=== PATIENT | female | born 1950 | race Caucasian/White ===

== ENCOUNTER → 2017-02-11 | Outpatient (CLI) | payer MEDICARE ==
[2016-06-26 13:35] VITALS: BP 120/59
[~2017-02-11] MED LIST: ACET325T9 PO; ATOR10TA60 PO; CHOL500015 PO; CITA20TA9 PO; DOCU-27 PO; FERR-26 PO; FEXO180T81 PO; IOHEXOL 180 MG/ML 10 ML VIAL. ONE; KRIL500C PO; LEVO50TA PO; LORA10TA3 PO; MAGN400C PO; METO25TA9 PO; OXYC-250 PO; PANT40TA5 PO; PROAIR HFA8.5 GM INH; SUMA5SPR NS; UBID50TA PO; WARF5TAB PO; methylPREDNISolone ACETATE 40 MG/ML VIAL. ONE; methylPREDNISolone ACETATE 80 MG/ML VIAL. ONE
--- NOTE | 2017-02-11 15:07 | PAIN ---
DATE OF SERVICE: 02/11/2017 INITIAL CONSULTATION FOR PAIN CLINIC CHIEF COMPLAINT: Neck and left upper extremity pain. HISTORY OF PRESENT ILLNESS: This is a 66-year-old female who presents with history of pain in the neck and left upper extremity for many years, the patient reports since 2009 at least. She had previous surgery in 2001 or so with anterior cervical fusion, multiple levels. The patient reports that since that time she did very well until about 2009, begin having pain in the base of the neck, shoulders, upper extremities, upper back, mid back with headaches and has been treated over the years, worse complaint now is neck and left shoulder, left upper extremity pain mostly in the biceps region and into the forearm, deltoid in the posterior aspect of the left arm as well with some tingling and numbness in the right arm also. The patient reports have been dropping items with the left hand, especially coffee cups or fine motor movement objects that she has been taking up. She has been dropping and then having some motor loss with the left arm and hand itself as well as paresthesias. The patient reports it is worse with abduction of the shoulder, worse with activities of daily living, getting dressed, using forehead and reaching forward as well as left hand. The patient reports it awakens her from sleep, but not every night, does not affect her bowel or bladder control or ability to walk. She has had some low back pain, which affects this as well. The patient has had physical therapy, chiropractic treatment exercises, epidural injections as well as shoulder biceps tendon injections on the left side. The patient has tried oral steroids, meloxicam, naproxen and Cymbalta, all of which helped to some extent, but has had some increase in blood pressure from the medications also, the other side effects. The patient did have an MRI scan of the cervical spine dated 11/05/2016 showing anterior cervical fusion, C3 through C6 of interbody grafts, no significant cervical spinal stenosis with mild to moderate left neural foraminal compromise, C4-C5 and C5-C6 due to facet degenerative change. The patient reports disability 0-10, 10 being the worst, is 6 with family and home responsibilities, 8 with recreation and sexual behavior, 1 with social activity, 4 with occupation, 3 with self care and 2 with life support activities. PAST MEDICAL HISTORY: Significant for borderline diabetes, hypothyroidism, hearing aids, blindness in the right eye, hypertension, arrhythmias, PVCs, gastroesophageal reflux, migraine headaches, arthritis, anxiety. PREVIOUS SURGERY: Include right total knee replacement 2015, lumbar laminectomy in 02/2007, cervical fusion 3 levels 08/2002, cholecystectomy in 1989, hysterectomy in 1985 and completed in 1990 and previous sinus surgery. CURRENT MEDICATIONS: Include omeprazole, loratadine, Colace, Restasis, Lasix, Imitrex, simvastatin, Lexapro, estradiol, levothyroxine, metoprolol. ALLERGIES: The patient is allergic to HYDROCODONE, OXYCODONE, , ULTRAM, STADOL, NUBAIN, FENTANYL, MORPHINE, NSAIDS, REGLAN, SULFA DRUGS, MACRODANTIN, TETRACYCLINES, CODEINE, PENICILLIN, CERTAIN METALS CELEBREX, TOPAMAX, WELLBUTRIN, EPINEPHRINE AND TORADOL. FAMILY HISTORY: Significant for osteoarthritis, hypertension, cancer of the pancreas, liver, lung and prostate. SOCIAL HISTORY: The patient is very rarely drinks a glass of wine maybe sometimes a year, does not smoke. She is , lives with her spouse, one child living at home and lives locally in [place], [place]. REVIEW OF SYSTEMS: The patient's review of systems is positive for those items mentioned in history of present illness. All systems reviewed and otherwise negative. It is complete, full and well documented on the patient's chart. PHYSICAL EXAMINATION: VITAL SIGNS: The patient's blood pressure is 146/78, pulse 71, respirations 18, temperature 98.2 degrees Fahrenheit, height is 5 feet 10 inches, weight is 201 pounds. GENERAL: The patient is awake, alert, oriented, appropriate, very pleasant demeanor. HEENT: Shows normocephalic, atraumatic. The patient wears eyeglasses. Extraocular movements are intact and symmetrical. Oral cavity, mucous membranes are moist and pink. Dentition is intact. NECK: Shows anterior throat supple without palpable lymphadenopathy noted. Swallow reflex is symmetrical. CHEST: Shows normal on inspection. Breath sounds are clear to auscultation bilaterally. HEART: Shows S1 and S2 clear. No murmurs are auscultated. ABDOMEN: Soft, nontender, nondistended, obese. No palpable organomegaly. No rebound or guarding demonstrated. BACK: Shows spine grossly midline. Well-healed surgical scarring noted in both feet are in the cervical distribution. Cervical paraspinous musculature is symmetrical on inspection, but very firm and tender with palpation throughout the upper, middle, lower distribution bilaterally diffusely without radiation, also in the superior medial and lateral trapezius, more on the left than the right, but very tender bilaterally without specific trigger points with very firm with increased muscle girth on the left compared to the right with firm palpation. The patient does show good rotational motion of the cervical spine; however, in the past 45 degrees right and left with some minor guarding also with extension with very minimal pain reported. Also, forward flexion with no pain reported and full forward flexion, chin to chest without difficulty. Upper extremities show deep tendon reflexes at 2+ in the biceps and triceps tendons. Motor exam is strong with approximately 4 on a scale of 5 with construction superintendent strength on the left and 5/5 on the right. Bicep and tricep flexion is 4/5 left, 5/5 on the right as well. Peripheral pulses are 2+ radial distribution. No peripheral edema is noted. No clubbing, no cyanosis. Upper extremities are warm and dry to touch, equal in color and appearance. The patient's shoulder shrug is strong and intact, but with pain reported in the base of the neck and shoulders bilaterally, worse on the left than the right with resistance, but no loss of strength. The patient shows abduction of shoulder. There is also significant tenderness on the left side with resistance and even some loss of strength on resistance with left side deltoid lateral movement and resistance, but not on the right. IMPRESSION: 1. This is a 66-year-old female with a long history of neck and left upper extremity pain in a radicular fashion. 2. MRI scan as noted. 3. Osteoarthritis. 4. Hypertension. PLAN: Options were discussed with the patient including conservative medical management, physical therapy, interventional techniques. She would like to pursue interventional techniques. We discussed the low cervical epidural steroid injection using description as well as anatomical models to describe the procedure. Risks were then discussed including, but not limited to bleeding, infection, possibility of epidural hematoma, subsequent neurologic compromise, dural puncture, headaches, spinal cord and/or nerve damage, side effects of steroid medication and poor results regarding pain control. The patient understands and wished to proceed. The patient will return to clinic in approximately 2 weeks for followup, was counseled on return appointment, activity level and side effects to be aware of. DIAGNOSES: Cervical radiculopathy with cervical degenerative disk disease and post-cervical laminectomy syndrome. PROCEDURE: Cervical epidural steroid injection in translaminar approach at the C6-C7 level with fluoroscopic guidance under sterile prep and drape using local anesthesia. Medication injected is 120 mg Depo-Medrol plus 5 mL preservative-free normal saline and 2 mL Isovue contrast. CONDITION AT DISCHARGE: Stable. The patient tolerated procedure well, had no complications. KAREN BARNETT MD DR: KRAIG/edyta JOB#: [id number] / [id number] VLADIMIR Galvan DO
== END | disposition home or self-care (01) ==
LOC: PNCL 10:03
PROVIDERS: ATTEND Anesthesiology
DX: M50.123 Cervical disc disorder at C6-C7 level with radiculopathy (principal); M96.1 Postlaminectomy syndrome, not elsewhere classified; M19.90 Unspecified osteoarthritis, unspecified site; I10 Essential (primary) hypertension; E11.9 Type 2 diabetes mellitus without complications; E03.9 Hypothyroidism, unspecified; K21.9 Gastro-esophageal reflux disease without esophagitis; F41.9 Anxiety disorder, unspecified; Z90.710 Acquired absence of both cervix and uterus; Z90.49 Acquired absence of other specified parts of digestive tract; Z96.651 Presence of right artificial knee joint; Z80.42 Family history of malignant neoplasm of prostate; Z80.1 Family history of malignant neoplasm of trachea, bronchus and lung
CPT/HCPCS: 62321; J1030; J1040

== ENCOUNTER → 2017-03-16 | Outpatient (CLI) | payer MEDICARE ==
[2016-06-26 13:35] VITALS: BP 120/59
--- NOTE | 2017-03-17 01:50 | PAIN ---
DATE OF SERVICE: 03/16/2017 DIAGNOSES: Cervical radiculopathy with cervical degenerative disk disease and post-cervical laminectomy syndrome. HISTORY OF PRESENT ILLNESS: The patient is a 66-year-old female who returns for followup status post cervical epidural steroid injection x 1 on 02/11/2017. The patient did very well, about 95% improvement, but she reports the pain is beginning to return now over the past few days, but still doing much better. Pain in the neck and upper extremities more worse on the left than then right, mostly in the posterior aspect of left arm and forearm, but some on the right side as well, but much more rarely. The patient reports it as a 6 on a scale of 10. She reports normally 3, which is what it is today. The patient describes it as aching, burning, cramping, some pain that ____ constant, but can be at times. The patient reports she is sleeping better at night and increased her activity with greater ease for upper extremities, with repetitive motions and doing some garden work at her house with much greater ease and comfort. She reports the pain is beginning to return now, becoming more noticeable again in the base of the neck, shoulder and into left upper extremity, but without motor loss. PHYSICAL EXAMINATION: VITAL SIGNS: Today, the patient's blood pressure is 120/55, pulse 69, respirations 18, and temperature 98.1 degrees Fahrenheit. Height is 5 feet 10 inches and weighs 209 pounds. GENERAL: The patient is awake, alert, oriented and appropriate, very pleasant demeanor. HEENT: Head shows normocephalic and atraumatic. Extraocular movements are intact and symmetrical. Oral cavity shows mucous membranes moist and pink. Dentition is intact. NECK: Shows anterior throat supple without palpable lymphadenopathy noted. Swallow reflex is symmetrical. CHEST: Normal on inspection. Breath sounds clear to auscultation bilaterally. HEART: Shows S1 and S2 clear. ABDOMEN: Soft, nontender, and nondistended. No palpable organomegaly. No rebound or guarding demonstrated. BACK: Shows spine grossly in the midline. Cervical paraspinous musculature shows some moderate tenderness with palpation, but is symmetrical only in the base of the neck in the superior medial aspect of the ____ trapezius. It is slightly more on the left than the right, but without asymmetry. The patient has good rotational motion of cervical spine, both laterally as well as extension and flexion without exacerbation of pain. EXTREMITIES: Upper extremities showed deep tendon reflexes 2+ in the biceps and triceps. Motor exam is approximately 4 on scale of 5, still with left biceps and triceps flexion and 5/5 on the right. Options were discussed with the patient and the patient's old chart was reviewed as her current medication regimen updated. Current review of systems updated today as well. We will proceed with a second cervical epidural steroid injection today with fluoroscopic guidance. Risks were again discussed including, but not limited to bleeding, infection, possibility of epidural hematoma and subsequent neurologic compromise, dural puncture, headaches, spinal cord and/or nerve damage, side effects of steroid medication and poor results regarding pain control. The patient understands and wished to proceed. The patient will return to clinic in approximately 2 weeks for followup. She was counseled on return appointment, activity level and side effects to be aware of. DIAGNOSES: Cervical radiculopathy with cervical degenerative disk disease and post-cervical laminectomy syndrome. PROCEDURE: Cervical epidural steroid injection in translaminar approach at C6-C7 level using C-arm fluoroscopic guidance under sterile prep and drape using local anesthetic. MEDICATIONS INJECTED: Depo-Medrol 120 mg plus 5 mL of preservative-free normal saline and 2 mL of Isovue for contrast. CONDITION AT DISCHARGE: Stable. The patient tolerated procedure well, had no complications. KAREN BARNETT MD DR: KRAIG/edyta JOB#: [id number] / [id number]
== END | disposition home or self-care (01) ==
LOC: PNCL 09:29
PROVIDERS: ATTEND Anesthesiology
DX: M50.123 Cervical disc disorder at C6-C7 level with radiculopathy (principal); M96.1 Postlaminectomy syndrome, not elsewhere classified; E78.00 Pure hypercholesterolemia, unspecified; I10 Essential (primary) hypertension; K21.9 Gastro-esophageal reflux disease without esophagitis; M19.90 Unspecified osteoarthritis, unspecified site; E03.9 Hypothyroidism, unspecified; F41.9 Anxiety disorder, unspecified; Z98.41 Cataract extraction status, right eye; Z98.42 Cataract extraction status, left eye; Z90.49 Acquired absence of other specified parts of digestive tract
CPT/HCPCS: 62321; J1030; J1040

== ENCOUNTER → 2017-05-06 | Outpatient (CLI) | payer MEDICARE ==
[2016-06-26 13:35] VITALS: BP 120/59
[~2017-05-06] MED LIST changes: -CHOL500015 PO; +CHOL500045 PO; +DOCU-109 PO; -DOCU-27 PO; +FURO-68 PO; -OXYC-250 PO; +OXYC-328 PO; +WARF-78 PO; -WARF5TAB PO
--- NOTE | 2017-05-06 16:42 | PAIN ---
DATE OF SERVICE: 05/06/2017 PROGRESS NOTE FOR PAIN CLINIC DIAGNOSES: Cervical radiculopathy with cervical degenerative disk disease and post-cervical laminectomy syndrome. HISTORY OF PRESENT ILLNESS: The patient is a 66-year-old female who returns for followup status post cervical epidural steroid injections x 2. The patient reports she has done very well with these, about 90% improvement for the first month and the pain returns in the base of the neck and shoulders, worse on the left than the right, radiating to the upper extremities up to the mid arm, ____ forearm on the left side. The patient reports it is an 8 on a scale of 10 at its worst and is a 3 on a scale of 10 at its least, currently 3 on a scale 10 today. The patient reports worse with activity, increasing raising her arms overhead, any repetitive motion with upper extremity. She reports that she feels better with lying down or sleeping. She is sleeping about 7 hours a night without any disturbance from the pain awakening her. The patient reports no new motor or sensory deficits or other complaints. PHYSICAL EXAMINATION: VITAL SIGNS: The patient's blood pressure 116/58, pulse 73, respirations 20, temperature 98.2 degrees Fahrenheit, height is 5 feet 10 inches, weight is 216 pounds. GENERAL: The patient is awake, alert, oriented, appropriate, very pleasant demeanor. HEENT: Head shows normocephalic, atraumatic. Extraocular movements are intact and symmetrical. Oral cavity, mucous membranes are moist and pink. Dentition is intact. NECK: Shows anterior throat supple without palpable lymphadenopathy noted. Swallow reflex is symmetrical. CHEST: Shows normal on inspection. Breath sounds are clear to auscultation bilaterally. HEART: Shows S1 and S2 clear. ABDOMEN: Soft, nontender, nondistended. No palpable organomegaly is noted. No rebound or guarding demonstrated. BACK: Shows spine grossly in the midline. The patient's cervical paraspinous musculature shows normal cervical lordotic curvature and symmetrical paraspinous musculature with palpation shows some moderate tenderness only diffusely in the inferior aspect of the cervical paraspinous muscles as well as superior medial and lateral trapezius, slightly more tender on the left than the right, but appears symmetrical without evidence of atrophy, hypertrophy or radiation. The patient shows good rotational motion of cervical spine both laterally as well as extension and flexion with some minor pain reported with extension in the base of the neck on the left, but not with forward flexion. EXTREMITIES: Upper extremity showed deep tendon reflexes 2+ in the biceps and triceps tendons. Motor exam is approximately 4 on a scale of 5 with left inner tube cutter and 5/5 on the right. PLAN: Options were discussed with the patient at this time. The patient's old chart was reviewed as her current medication regimen updated. Current review of systems updated today as well. We will proceed with the cervical epidural steroid injection today as the third in the series. Risks were again discussed including, but not limited to, bleeding, infection, possibility of epidural hematoma, subsequent neurologic compromise, dural puncture, headaches, spinal cord and/or nerve damage, side effects of steroid medication and poor results regarding pain control. The patient understands and wishes to proceed. The patient will return to the clinic in approximately 2 weeks for followup. She was counseled as to return appointment, activity level and side effects to be aware of. DIAGNOSES: Cervical radiculopathy with cervical degenerative disk disease and post-cervical laminectomy syndrome. PROCEDURE: Cervical epidural steroid injection, translaminar approach at the C6-C7 level using C-arm fluoroscopic guidance under sterile prep and drape using local anesthetic. MEDICATION INJECTED: 120 mg Depo-Medrol plus 5 mL of preservative-free normal saline and 2 mL of Isovue for contrast. CONDITION AT DISCHARGE: Stable. The patient tolerated procedure well, had no complications. KAREN BARNETT MD DR: KRAIG/edyta JOB#: [id number] / [id number]
== END | disposition home or self-care (01) ==
LOC: PNCL 09:32
PROVIDERS: ATTEND Anesthesiology
DX: M50.123 Cervical disc disorder at C6-C7 level with radiculopathy (principal); M96.1 Postlaminectomy syndrome, not elsewhere classified; E78.00 Pure hypercholesterolemia, unspecified; I10 Essential (primary) hypertension; J45.909 Unspecified asthma, uncomplicated; M19.90 Unspecified osteoarthritis, unspecified site; E03.9 Hypothyroidism, unspecified; F41.9 Anxiety disorder, unspecified; K21.9 Gastro-esophageal reflux disease without esophagitis; Z98.41 Cataract extraction status, right eye; Z98.42 Cataract extraction status, left eye; Z86.69 Personal history of other diseases of the nervous system and sense organs; Z90.49 Acquired absence of other specified parts of digestive tract; Z87.39 Personal history of other diseases of the musculoskeletal system and connective tissue; Z88.6 Allergy status to analgesic agent; Z88.1 Allergy status to other antibiotic agents; Z88.2 Allergy status to sulfonamides; Z88.8 Allergy status to other drugs, medicaments and biological substances
CPT/HCPCS: 62321; J1030; J1040

== ENCOUNTER → 2017-09-20 | Outpatient (CLI) | payer MEDICARE ==
[2016-06-26 13:35] VITALS: BP 120/59
[~2017-09-20] MED LIST changes: -IOHEXOL 180 MG/ML 10 ML VIAL. ONE; +METO-239 PO; -METO25TA9 PO; -methylPREDNISolone ACETATE 40 MG/ML VIAL. ONE; -methylPREDNISolone ACETATE 80 MG/ML VIAL. ONE
--- NOTE | 2017-09-20 17:03 | KCIC ---
MR of the right shoulder Indication: Right shoulder pain for at least 2 years. Decreased range of motion. Technique: Standard multiplanar sequences are obtained. Findings: Moderate motion degradation on some of the sequences. Acromioclavicular joint: Mild degenerative changes. Rotator cuff: Full-thickness tear of the anterior supraspinatus tendon, measures 1 cm AP diameter with 1 cm retraction. Mild fluid in the subdeltoid bursa. Mild rotator cuff muscle atrophy. Partial subscapularis tendon tear. Tendinosis of the remaining rotator cuff. Glenohumeral cartilage: No advanced primary osteoarthritis. Fluid: Trace joint fluid. Labrum: Limited evaluation due to the motion. No apparent tear. Biceps tendon: Proximal tendinosis and partial tear. Bones: No lesion or acute fracture. Soft tissue: Fluid within the subcoracoid bursa. Impression: 1. Rotator cuff tendinosis. Small full-thickness tear of the anterior supraspinatus tendon. Partial subscapularis tendon tear. 2. Subcoracoid bursal fluid or bursitis. 3. Proximal biceps tendinosis with partial tear. Electronically signed by: Edgar Prado MD (09/20/2017 5:00 PM) [id number]
== END | disposition home or self-care (01) ==
LOC: KCIC MRI 15:44
PROVIDERS: ATTEND Orthopaedic Surgery
DX: M25.511 Pain in right shoulder (principal)
CPT/HCPCS: 73221

== ENCOUNTER → 2019-02-09 | Outpatient (CLI) | payer MEDICARE ==
[2016-06-26 13:35] VITALS: BP 120/59
[~2019-02-09] MED LIST changes: +ALBU2.5V8 INH; -FERR-26 PO; +FERR325T14 PO; -OXYC-328 PO; +OXYC1TAB22 PO; -PROAIR HFA8.5 GM INH
--- NOTE | 2019-02-10 08:15 | KCIC ---
CT scan of the temporal bones without contrast 02/09/2019 CLINICAL HISTORY: Chronic left mastoiditis. Left ear pain. History of surgery in the 1970s. A drainage. TECHNIQUE: Unenhanced, contiguous, 0.6 mm axial sections were obtained through the petrous portions of the temporal bones. 1 mm reconstructed sagittal, axial and coronal images were obtained. FINDINGS: The patient is post right mastoidectomy. A small effusion is seen involving the remaining right mastoid air cells. A small to moderate left mastoid effusion is seen. 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 The middle ear ossicles are otherwise intact. No bony destruction is seen. No abnormal soft tissue mass is noted. Cochlea and semicircular canals are within normal limits bilaterally. Mild to moderate degenerative changes are seen involving both TMJs. The patient is post resection of a portion of the medial arteaga of both maxillary sinuses. Mild mucosal thickening is seen scattered throughout the sphenoid sinus and visualized portions of the ethmoid air cells. IMPRESSION: 1. Post right mastoidectomy. The patient appears to have a prosthetic right stapes. 2. Small to moderate-sized mastoid effusions, left greater than right. Electronically signed by: Lorenzo Olivia MD (02/10/2019 8:12 AM) [id number]
== END | disposition home or self-care (01) ==
LOC: KCIC CT 12:45
PROVIDERS: ATTEND Specialist
DX: H74.8X3 Other specified disorders of middle ear and mastoid, bilateral (principal); H70.12 Chronic mastoiditis, left ear
CPT/HCPCS: 70480

== ENCOUNTER → 2021-02-20 | Outpatient (CLI) | payer MEDICARE ==
[2016-06-26 13:35] VITALS: BP 120/59
[~2021-02-20] MED LIST changes: +FAMO20TA5 PO; +MULT-496 PO; -PANT40TA5 PO; +PANT40TA77 PO; +TIOT4MIS3 IH; +VENTOLIN HFA18 GM INH; +VITA1TAB19 PO; -WARF-78 PO; +WARF5TAB2 PO; +cognium
--- NOTE | 2021-02-20 11:20 | PDOC1 ---
INITIAL PAIN CONSULT DATE OF SERVICE: DOS: DATE: 02/20/21 TIME: 11:13 CHIEF COMPLAINT: Chief Complaint: Mid upper back and right side pain HISTORY OF PRESENT ILLNESS: 70-year-old female presents with history of pain in the mid upper back with radiation into the right thoracic cage to near midline on the right side. Patient reports it started about a year ago and is not result of any specific injury or accident she is aware of get increasing gradually getting worse over time patient reports is worse with walking standing changing positions generally better with sitting or laying down but much more noticeable with walking standing patient reports it begins in the mid part of the back radiates around the right side of the inferior rib cage and ends not quite to the midline but in the anterior lower thoracic distribution on the right side only. Patient reports is becoming more constant is aching with sore muscles sensation on the right side worse with walking and standing once again better with sitting or laying down generally does not awaken her from sleep at night does not affect her bowel bladder control or ability to walk patient reports some days it is fairly well controlled and other days is very severe with the pain. Patient reports she is taking Tylenol as well as other [id number] remedies without significant decrease in pain but the Tylenol does help by about 40% or so patient rates her disability rating 0-10 10 being the worst is a 2 of family home was hospitalized and recreation is 0 and social activity occupation sexual behavior support activities and self-care activities. Patient does not had any studies of the thoracic spine at this time but has had previous cervical laminectomy and lumbar laminectomy in the past. Patient has had CT scans of the chest which was essentially normal except for some groundglass appearance of the lungs and also CT of the chest abdomen and pelvis however the thoracic spine was not evaluated in the studies otherwise they were negative. PAST MEDICAL HISTORY: PMH: Hearing loss, COPD, gastroesophageal reflux, PVCs, arthritis PREVIOUS SURGERIES: Past Surgical Hx: Right trigger finger release, cataract extractions bilaterally, hysterectomy, bunionectomy, total knee replacement on the right, tympanoplasty, lumbar laminectomy, cervical laminectomy and fusion, toe surgeries multiple, carpal tunnel repair bilaterally CURRENT MEDICATIONS: Current Meds: Active Scripts Medications Dose Route/Sig Max Daily Dose Days Date Category Dose Instructions Daily Value (Multivitamin) 1 Each Tablet 1 Tab PO DAILY 30 02/20/21 Reported Famotidine 20 Mg Tablet 20 Mg PO HS 02/20/21 Reported [cognium] 1 Tab DAILY 02/20/21 Reported B Complex (Vitamin B Complex) 1 Each Tablet 1 Tab PO DAILY 30 02/20/21 Reported Ventolin Hfa Inhaler (Albuterol Sulfate) 18 Gm Hfa.aer.ad 2 Puff INH QID PRN 02/20/21 Reported Stiolto Respimat Inhal [place] (Tiotropium Br/Olodaterol HCl) 4 Gm Mist.inhal 4 Gm IH DAILY 02/20/21 Reported Lasix (Furosemide) 40 Mg Tablet 1 Tab PO DAILY 05/06/17 Reported Magnesium (Magnesium Oxide) 400 Mg Capsule 250 Mg PO BID 02/11/17 Reported Atorvastatin Calcium 10 Mg Tablet 10 Mg PO HS 02/11/17 Reported Vitamin D (Cholecalciferol (Vitamin D3)) 5,000 Unit Tablet 5,000 Unit PO HS 05/31/16 Reported LAST DOSE GIVEN: DATE:06-25-16 TIME:9:00 p.m. NEXT DOSE DUE: DATE:06-26-16 TIME:9:00 p.m. Pantoprazole Sodium (Pantoprazole Sodium) 40 Mg Tablet.dr 40 Mg PO HS 05/31/16 Reported LAST DOSE GIVEN: DATE:06-25-16 TIME:9:00 p.m. NEXT DOSE DUE: DATE:06-26-16 TIME:9:00 p.m. Loratadine 10 Mg Tablet 10 Mg PO HS 05/31/16 Reported Take at home as needed as directed Colace (Docusate Sodium) 100 Mg Capsule 100 Mg PO HS 05/31/16 Reported LAST DOSE GIVEN: DATE:06-25-16 TIME:9:00 p.m. NEXT DOSE DUE: DATE:06-26-16 TIME:9:00 p.m. Synthroid (Levothyroxine Sodium) 50 Mcg Tablet 1 Tab PO HS 05/31/16 Reported LAST DOSE GIVEN: DATE:06-26-16 TIME:7:00 a.m. NEXT DOSE DUE: DATE:06-27-16 TIME:7:00 a.m. Merry Allergy (Fexofenadine Hcl) 180 Mg Tablet 180 Mg PO DAILY 05/31/16 Reported Not taken while in hosp. May resume at home as directed as needed Metoprolol Succinate ( Xl ) (Metoprolol Succinate) 25 Mg Tab.er.24h 25 Mg PO HS 05/31/16 Reported LAST DOSE GIVEN: DATE:06-25-16 TIME:9:00 p.m. NEXT DOSE DUE: DATE:06-26-16 TIME:9:00 p.m. Stiolto Respimat Inhal [place] (Tiotropium Br/Olodaterol HCl) 4 Gm Mist.inhal 4 Gm IH DAILY 02/05/18 Reported Proair Hfa Inhaler (Albuterol Sulfate) 8.5 Gm Hfa.aer.ad 2 Puff INH PRN Q6HRS PRN 02/05/18 Reported Cipro (Ciprofloxacin Hcl) 500 Mg Tablet 1 Tab PO BID 02/05/18 Reported Vitamin D3 (Cholecalciferol (Vitamin D3)) 5,000 Unit Tablet 1 Tab PO QHS 02/05/18 Reported Magnesium (Magnesium Oxide) 400 Mg Capsule 1 Cap PO BID 02/05/18 Reported Lasix (Furosemide) 20 Mg Tablet 1 Tab PO DAILY 02/05/18 Reported Merry Allergy (Fexofenadine Hcl) 180 Mg Tablet 1 Tab PO DAILY 02/05/18 Reported Loratadine 10 Mg Tablet 1 Tab PO QHS 02/05/18 Reported Multivitamins (Multivitamin) 1 Each Tablet 1 Tab PO QHS 02/05/18 Reported Atorvastatin Calcium 10 Mg Tablet 1 Tab PO QHS 02/05/18 Reported Pantoprazole Sodium 40 Mg Tablet.dr 1 Tab PO BID 02/05/18 Reported Levothyroxine Sodium 50 Mcg Tablet 1 Tab PO QHS 02/05/18 Reported Celexa (Citalopram Hydrobromide) 20 Mg Tablet 1 Tab PO QHS 02/05/18 Reported Metoprolol Succinate ( Xl ) (Metoprolol Succinate) 25 Mg Tab.er.24h 1 Tab PO QHS 02/05/18 Reported ALLERGIES; Allergies: Coded Allergies: NSAIDS (Non-Steroidal Anti-Inflamma (Verified Allergy, Intermediate, SEVERE HEARTBURN, 06/24/16) Sulfa (Sulfonamide Antibiotics) (Verified Allergy, Intermediate, Rash, 06/23/16) Tetracyclines (Verified Allergy, Intermediate, Rash, 06/23/16) amoxicillin (Verified Allergy, Intermediate, Rash, 06/23/16) bupropion (Verified Allergy, Intermediate, Rash, 06/23/16) celecoxib (Verified Allergy, Intermediate, Rash, 06/23/16) epinephrine (Verified Allergy, Intermediate, 06/23/16) HYPER X 24 HOURS-TAKES A LONG TIME TO WEAR OFF ketorolac (Verified Allergy, Intermediate, Nausea and Vomiting, 06/23/16) metoclopramide (Verified Allergy, Intermediate, Anxiety, 06/23/16) topiramate (Verified Allergy, Intermediate, Rash, 06/23/16) codeine (Verified Adverse Reaction, Intermediate, Nausea and Vomiting, 06/25/16) tramadol (Verified Adverse Reaction, Intermediate, Nausea, 06/25/16) FAMILY HISTORY: Family Hx: Osteoarthritis, cancers, hypertension, depression anxiety, heart disease SOCIAL HISTORY: Social Hx: Patient does not drink alcohol does not smoke says any illegal illicit recreational drugs is lives with her spouse and lives locally and is currently retired. REVIEW OF SYSTEMS: ROS: Positive for those items mentioned in history of present illness, all systems are reviewed, otherwise negative ,and are complete full and well-documented on patient's chart. PHYSICAL EXAM: VS: Blood pressure is 136/55 pulse 66 respirations 16 temperature 98.4 F 5 feet 10 inches weight is 226 pounds PE: PHYSICAL EXAMINATION: GENERAL: The patient is awake, alert, oriented, appropriate, very pleasant demeanor HEENT: Shows normocephalic, atraumatic. Extraocular movements are intact and symmetrical. Oral cavity: Mucous membranes moist and pink. NECK: Shows anterior throat supple without palpable lymphadenopathy noted. Swallow reflex symmetrical. CHEST: Shows normal on inspection. Breath sounds are clear bilaterally, no rales rhonchi wheezes auscultated. HEART: Shows S1, S2 clear. No murmurs auscultated. ABDOMEN: Soft, nontender, nondistended, obese. No palpable organomegaly is noted. No rebound or guarding demonstrated. BACK: Shows spine grossly in the midline. Normal-appearing cervical lordotic curvature. There is slightly increased thoracic kyphosis, some minor flattening of the lumbar lordotic curvature. No rashes or discoloration is noted bilaterally in the thoracic distribution. Thoracic paraspinous muscles show symmetrical on inspection with palpation shows some moderate tenderness diffusely more on the right than the left and is firm but without specific trigger points or radiation. Patient shows good rotation of motion of the thoracic spine both laterally as well as extension and flexion without signi ficant increase in pain but with far lateral rotation to the right and reaching posteriorly does increase the pain which radiates into the inferior aspect of the right thoracic cage. Lumbar paraspinous muscles show symmetrical on inspection, on palpation shows some moderate tenderness diffusely throughout the upper, middle and lower distribution of the paraspinous muscles, but without specific trigger points, without radiation of pain. The patient has good rotational motion of the lumbar spine, both laterally as well as extension and flexion without significant difficulty. No tenderness over the spinous processes, sacrum or sacroiliac regions. EXTREMITIES: Lower extremities show deep tendon reflexes 1+ in the patellar and tendo calcaneus tendons. Motor exam is 5 on a scale of 5 with right dorsiflexion, extension, quadriceps and hamstring flexion and 5/5 on the left. Peripheral pulses are 1+ posterior tibial. No peripheral edema is noted bilaterally. Lower extremities are warm and dry to touch, equal in color and appearance. Upper extremity show deep tendon reflexes 2+ in the bicep and tricep tendons, motor exam is strong with taping foreman strength rated at 5 out of 5 as is bicep and tricep flexion and symmetrical bilaterally. Peripheral pulses are 2+ radial, no peripheral edema is noted bilaterally in the upper extremities. SKIN: Shows warm and dry, good turgor. No edema. No sores, rashes or bruising throughout. IMPRESSION: Impression: 70-year-old female with approximate 1 year history of pain mid back rating to the right lateral aspect of the inferior thoracic cage in a radicular fashion. CT scans as noted Arthritis Hypertension COPD Plan: Options were discussed with the patient including conservative medical management is continued physical therapies and interventional techniques. We will first start with films of the thoracic spine to better differentiate any possible etiology of the right-sided pain. We will also try Medrol Dosepak patient was given instructions well side effects beware with the medication. Patient will follow up after the x-rays are performed and Medrol Dosepak is trialed and we will proceed with further plan at that time. KAREN BARNETT MD Feb 20, 2021 11:20
--- NOTE | 2021-02-20 17:06 | RAD ---
XR THORACIC SPINE 3VIEWS History: Reason: RIGHT THORACIC RADICULOPATHY / Spl. Instructions: / History: Technique: 3 views thoracic spine. Comparison: None. Findings: Normal vertebral body height and alignment. No fracture. Postoperative changes cervical spine. Partia lly imaged upper lumbar spondylosis. Multilevel thoracic degenerative disc changes most prominent wit hin the mid to lower aspect. Impression: 1. No acute osseous abnormality. 2. Multilevel thoracic spondylosis most prominent within the mid to lower aspect. Electronically signed by: Jovon Montiel DO (02/20/2021 5:03 PM) [id number]
== END | disposition home or self-care (01) ==
LOC: PNCL 09:03
PROVIDERS: ATTEND Anesthesiology
DX: M54.14 Radiculopathy, thoracic region (principal); M47.814 Spondylosis without myelopathy or radiculopathy, thoracic region; Z88.1 Allergy status to other antibiotic agents; Z88.6 Allergy status to analgesic agent; Z88.8 Allergy status to other drugs, medicaments and biological substances
CPT/HCPCS: 72072; G0463

== ENCOUNTER → 2021-10-06 | Outpatient (CLI) | payer MEDICARE ==
[2016-06-26 13:35] VITALS: BP 120/59
[~2021-10-06] MED LIST changes: +IOHEXOL 180 MG/ML 10 ML VIAL. ONE; +methylPREDNISolone ACETATE 40 MG/ML VIAL. ONE; +methylPREDNISolone ACETATE 80 MG/ML VIAL. ONE
--- NOTE | 2021-10-06 13:51 | PDOC ---
Progress Note - Pain Clinic Date of Service: DOS: DATE: 10/06/21 TIME: 13:47 Diagnosis: Dx: Lumbar radiculopathy with lumbar postlaminectomy syndrome and lumbar spondylosis Thoracic radiculopathy with thoracic degenerative disc disease Cervical radiculopathy with cervical postlaminectomy syndrome History or Present Illness: HPI: 70-year-old female returns for follow-up last seen in February of this year we tried some conservative therapies and oral steroids which helped her temporarily but the pain returned now and not only in the thoracic distribution but is now new pain in the low back radiating to the left lower extremity into the posterior gluteus posterior thigh posterior calf on the side of the leg especially in the lateral aspect of the thigh in the medial aspect of the anterior thigh as well as the medial knee patient what is aching tingling burning pain going on this way for about a month patient reports not the result of any specific injury or accident that she is aware of patient ports tingling and burning on the left side of the leg as well as aching in the back and the leg itself worse with walking standing better with sitting or laying down generally does not awaken her from sleep at night patient rates her pain a 6 on scale 10 is worse over the past week 5 on average 3 at its least is a 5 today patient reports is worse with changing positions getting up from seated position putting all of her weight on her left leg. Patient reports no bowel or bladder incontinence. Patient reports no loss of function but significant fatigability of the left leg with ambulation. Physical Exam: VS: Blood pressure is 136/53 pulse 67 respirations 18 temperature 93 Fahrenheit height 5 feet 10 inches weight 229 pounds PE: PHYSICAL EXAMINATION: GENERAL: The patient is awake, alert, oriented, appropriate, very pleasant in demeanor HEENT: Shows normocephalic, atraumatic. Extraocular movements are intact and symmetrical. Oral cavity: Mucous membranes moist and pink. NECK: Shows anterior throat supple without palpable lymphadenopathy noted. Swallow reflex symmetrical. CHEST: Shows normal on inspection. Breath sounds are clear bilaterally, no rales or rhonchi. HEART: Shows S1, S2 clear. No murmurs auscultated. ABDOMEN: Soft, nontender, nondistended, obese. No palpable organomegaly is noted. BACK: Shows spine grossly in the midline. Normal-appearing cervical lordotic curvature. There is increased thoracic kyphosis, some flattening of the lumbar lordotic curvature, with well-healed surgical scar noted. Lumbar paraspinous muscles show symmetrical on inspection, on palpation shows some moderate tenderness diffusely throughout the upper, middle and lower distribution of the paraspinous muscles without specific trigger points, without radiation of pain. The patient has good rotational motion of the lumbar spine, both laterally as well as extension and flexion without significant difficulty. No tenderness over the spinous processes, sacrum or sacroiliac regions. EXTREMITIES: Lower extremities show deep tendon reflexes 1 in the patellar and tendo calcaneus tendons. Motor exam is 5 on a scale of 5 with right do rsiflexion, extension, quadriceps and hamstring flexion and 5/5 on the left. Peripheral pulses are 1+ posterior tibial. No peripheral edema is noted bilaterally. Lower extremities are warm and dry to touch, equal in color and appearance. SKIN: Shows warm and dry, good turgor. No edema. No sores, rashes or bruising throughout. Procedure: Procedure: Options were discussed with the patient. Patient chart reviews her current medication regimen updated current review of systems updated today as well. We will proceed with a lumbar epidural steroid injection today with fluoroscopic guidance. Risks were discussed including but not limited to: Bleeding, infection, possibility of epidural hematoma and subsequent neurological c ompromise, dural puncture, headaches, spinal cord and/or nerve damage, side effects of steroid medication, and poor results regarding pain control. Patient understands and wished to proceed. Patient return to the clinic in approximate 2 weeks for follow-up, was counseled return appointment, activity level, and side effect to be aware of. Medication Injected: Med Injected: Procedure is lumbar epidural steroid injection under local anesthetic using sterile prep and drape at the L4-5 level using C-arm fluoroscopic guidance in both AP and lateral views medications injected is 120 mg Depo-Medrol +10mL p reservative-free normal saline and 2 mL contrast- condition at discharge is stable patient tolerated procedure well had no complications. Condition at Discharge: Condition at Discharge: Condition at discharge stable, patient tolerated the procedure well and had no complications. KAREN BARNETT MD Oct 06, 2021 13:51
--- NOTE | 2021-10-06 13:52 | PDOC4 ---
Procedure Note: ICD 10 Code: ICD 10 Code: M54.16 M 96.1 M4 7.816 Procedure Note: Patient was consented for lumbar epidural steroid injection with fluoroscopic guidance. Risks were discussed including but not limited to: Bleeding, infection, possibility of epidural hematoma and subsequent neurological compromise, dural puncture, headaches, spinal cord and/or nerve damage, side effects of steroid medication, and poor results regarding pain control. Patient understands and wished to proceed. Procedure is lumbar epidural steroid injection under local anesthetic using st erile prep and drape at the L4-5 level using C-arm fluoroscopic guidance in both AP and lateral views medications injected is 120 mg Depo-Medrol +10mL preservative-free normal saline and 2 mL contrast- condition at discharge is stable patient tolerated procedure well had no complications. KAREN BARNETT MD Oct 06, 2021 13:52
== END | disposition home or self-care (01) ==
LOC: PNCL 13:11
PROVIDERS: ATTEND Anesthesiology
DX: M47.26 Other spondylosis with radiculopathy, lumbar region (principal); M96.1 Postlaminectomy syndrome, not elsewhere classified; M51.14 Intervertebral disc disorders with radiculopathy, thoracic region; M51.16 Intervertebral disc disorders with radiculopathy, lumbar region; I10 Essential (primary) hypertension; E78.00 Pure hypercholesterolemia, unspecified; G47.30 Sleep apnea, unspecified; M19.90 Unspecified osteoarthritis, unspecified site; E03.9 Hypothyroidism, unspecified; F41.9 Anxiety disorder, unspecified; K21.9 Gastro-esophageal reflux disease without esophagitis; J45.909 Unspecified asthma, uncomplicated; Z90.49 Acquired absence of other specified parts of digestive tract; Z90.710 Acquired absence of both cervix and uterus; Z98.890 Other specified postprocedural states; Z79.899 Other long term (current) drug therapy; Z88.1 Allergy status to other antibiotic agents; Z88.2 Allergy status to sulfonamides; Z88.8 Allergy status to other drugs, medicaments and biological substances; Z82.49 Family history of ischemic heart disease and other diseases of the circulatory system
CPT/HCPCS: 62323; J1030; J1040; Q9965